=== PATIENT | female | born 1945 | race Caucasian/White ===

== ENCOUNTER 2018-05-07 10:30 | Emergency (ER) | payer MEDICARE, OTHER ==
[~2018-05-07] VITALS: Ht 149.9 cm; Wt 57.6 kg
[2018-05-07 10:37] VITALS: BP 132/79
[2018-05-07] MEDS ORDERED: OXYMETAZOLINE HCL 0.05 % NASAL SPRAY 15ML ONE (11:30)
== END 2018-05-07 14:18 | disposition home or self-care (01) ==
LOC: ER 10:30
DX: R04.0 Epistaxis (principal); Z88.0 Allergy status to penicillin; Z88.2 Allergy status to sulfonamides; Z88.6 Allergy status to analgesic agent
CPT/HCPCS: 30901